=== PATIENT | male | born 1970 | race Caucasian/White ===

== ENCOUNTER 2018-02-14 18:55 | Emergency (ER) | payer BC ==
[2018-02-14 19:06] VITALS: BP 125/85
--- NOTE | 2018-02-14 19:26 | EDM.PDOC ---
ED HPI GENERAL MEDICAL PROBLEM - General Chief Complaint: Lower Extremity Injury/Pain Stated Complaint: RIGHT THIGH PAINFUL Time Seen by Provider: 02/14/18 19:19 Source of Information: Reports: Patient, Family (spouse) History Limitations: Reports: No Limitations - History of Present Illness INITIAL COMMENTS - FREE TEXT/NARRATIVE: 47-year-old male presents the ED referred from [facility]. Patient is complaining of diffuse pain right medial thigh that started early this morning and progressively worsened as the day gone on to the point that he can barely walk. He has no known injuries to this area. He did travel quite a bit over the weekend 6 or 7 hours down to [place] and 6-7 hours back 2 days later. No history of DVT. Patient is able to localize the pain very well to the medial aspect of his quadriceps. He complains of no other problems particularly no shortness of breath cough or hemoptysis. No swelling of his lower extremity. Onset: Today Onset Date: 02/14/18 (Very mild discomfort medial right quadriceps musculature) Duration: Hour(s): Location: Reports: Lower Extremity, Right (Right medial mid ) Quality: Reports: Ache, Other Severity: Moderate (There is very tender to touch. Current pain as 7 or 8 out of 10) Improves with: Reports: Rest Worsens with: Reports: Movement Context: Denies: Activity, Exercise, Lifting, Sick Contact, Trauma, Other Associated Symptoms: Denies: No Other Symptoms, Confusion, Chest Pain, Cough, cough w sputum, Diaphoresis, Fever/Chills, Headaches, Loss of Appetite, Malaise , Rash, Seizure, Shortness of Breath, Syncope Treatments FLOOR CARE TECHNICIAN: Reports: Acetaminophen Right Leg Pain Score (Numeric/FACES): 4 - Related Data Allergies Allergy/AdvReac Type Severity Reaction Status Date / Time brompheniramine maleate Allergy Rash Verified 02/14/18 19:01 [From Dimetapp Cold-Allergy (PE)] Iodinated Contrast- Oral and Allergy Hives Verified 02/14/18 19:01 IV Dye [Iodinated Contrast Media - IV Dye] Penicillins Allergy Chest Verified 02/14/18 19:01 Tightness phenylephrine HCl Allergy Rash Verified 02/14/18 19:01 [From Dimetapp Cold-Allergy (PE)] Home Meds: Home Meds Levothyroxine 225 mcg PO ACBREAKFAST 02/14/18 [History] Past Medical History - Past Surgical History HEENT Surgical History: Reports: Other (See Below) Other HEENT Surgeries/Procedures: 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 Other GI Surgeries/Procedures: GASTRIC BYPASS Social & Family History - Tobacco Use Smoking Status *Q: Never Smoker Second Hand Smoke Exposure: No - Recreational Drug Use Recreational Drug Use: No - Living Situation & Occupation Living situation: Reports: Occupation: Employed Review of Systems - Review of Systems Review Of Systems: See Below Constitutional: Reports: No Symptoms Eyes: Reports: No Symptoms Ears: Reports: No Symptoms Nose: Reports: No Symptoms Mouth/Throat: Reports: No Symptoms Respiratory: Reports: No Symptoms Cardiovascular: Reports: No Symptoms GI/Abdominal: Reports: No Symptoms Genitourinary: Reports: No Symptoms Musculoskeletal: Reports: Leg Pain (Medial right thigh pain that has progressively) Skin: Reports: No Symptoms ( worsened as the day has gone on.) Neurological: Reports: No Symptoms Psychiatric: Reports: No Symptoms ED EXAM, GENERAL - Physical Exam Exam: See Below Exam Limited By: Uncooperative General Appearance: Alert, WD/WN, No Apparent Distress Peripheral Pulses: 3+: Posterior Tibial (L), Posterior Tibial (R), Dorsalis Pedis (L), Dorsalis Pedis (R) Extremities: Other (Examination was limited to the right lower extremity. He has good dorsalis pedis and posterior tibial pulses to the right foot. There is no discoloration. There is no swelling or edema of the lower extremity. There is no pain on palpation throughout the entire calf musculature or midline catheter. The knee itself shows no effusion. Pain is well localized to the medial quadriceps muscle I believe about 3 cm anterior to the greater saphenous vein. He has point tenderness in this area however. It is worse with the knee in flexed position. Suggest that these got a partial tear of quadriceps tendon) Neurological: Alert, Oriented, CN II-XII Intact, Normal Cognition, Abnormal Gait Psychiatric: Normal Affect (Limping gait.), Normal Mood Course - Vital Signs Last Recorded V/S: Last Vital Signs Temp 37.7 C 02/14/18 19:02 Pulse 72 02/14/18 19:02 Resp 17 02/14/18 19:02 BP 125/85 02/14/18 19:02 Pulse Ox 98 02/14/18 19:02 - Orders/Labs/Meds Orders: Active Orders 24 hr Category Date Time Status Femur Min 2V Rt [CR] Stat Exams 02/14/18 19:20 Taken VL Duplex Lwr Ext Veins Ltd Rt [US] Stat Exams 02/14/18 19:19 Taken - Radiology Interpretation Free Text/Narrative:: 47-year-old male presents to the ED with acute onset of pain medial aspect of his right thigh that is progressed as the day has gone on. He states was very mildly tender this morning when he got up but as the days gone on to work he is limping badly by the end of the day. He can localize the pain very well to the mid medial quadriceps musculature. It doesn't take much to make it hurt suggesting that it is quite superficial in origin. I believe that is about 3 cm anterior to the greater saphenous veins unlikely to work represent a phlebitis. However I will have a Doppler ultrasound of the area carried out and a x-ray of the femur to make sure not missing anything in the underlying bone. - Re-Assessments/Exams Free Text/Narrative Re-Assessment/Exam: 02/14/18 20:43 x-ray of the right femur is completely normal. An ultrasound of the veins within the leg have been completed and I do not see any evidence of deep venous thrombosis. The biomedical instrument technician as localized his area of tenderness and it measures approximately 2 cm x 1 cm. I will await the radiologist's report in regards to possible etiology. However it appears that this may well be an underlying hematoma within the quadriceps musculature. Departure - Departure Time of Disposition: 20:49 Disposition: Home, Self-Care 01 Condition: Fair Clinical Impression: Strain of right quadriceps muscle Qualifiers: Encounter type: initial encounter Qualified Code(s): S76.111A - Strain of right quadriceps muscle, fascia and tendon, initial encounter - Discharge Information Instructions: Quadriceps Strain Referrals: Celine Arellano, EPIDEMIOLOGY INTERN [Primary Care Provider] - Forms: ED Department Discharge Additional Instructions: Evaluation in the emergency him today in regards to development of increasing pain over the day in the right medial thigh in the distribution of the medial quadriceps muscle. There is exquisitely tender to touch and well localized. An x -ray of the underlying femur bone shows no bony abnormalities. An ultrasound of the leg veins shows no evidence of a blood clot within the deep venous system. The area of pain was localized by the tech and it appears to be a hematoma or collection of blood within the muscle likely due to spontaneous rupture of a vein within the muscle belly. This is causing stretching of the area which is causing pain. Treatment is therefore heat pack to the area one half hour out of every 4 hours when available. Motrin 600 mg every 6 hours needed for pain relief. This is likely to take 7-10 days to completely resolve. However does not represent anything serious. - My Orders Last 24 Hours: My Active Orders 02/14/18 19:19 VL Duplex Lwr Ext Veins Ltd Rt [US] Stat 02/14/18 19:20 Femur Min 2V Rt [CR] Stat - Assessment/Plan Last 24 Hours: My Active Orders 02/14/18 19:19 VL Duplex Lwr Ext Veins Ltd Rt [US] Stat 02/14/18 19:20 Femur Min 2V Rt [CR] Stat
--- NOTE | 2018-02-15 08:30 | CR ---
Right femur: AP and lateral views of the right femur were obtained. Comparison: No prior femur study. Mild joint space narrowing is seen superiorly within the right hip. No fracture or other bony abnormality is seen. Impression: 1. Mild joint space narrowing within the right hip. 2. Right femur exam is otherwise unremarkable. Diagnostic code #2
--- NOTE | 2018-02-15 08:30 | US ---
Right lower extremity deep venous ultrasound: Duplex and color flow imaging was obtained of the right common femoral, proximal greater saphenous, superficial femoral, popliteal, posterior tibial and peroneal veins. Left common femoral vein was also evaluated. Comparison: No prior venous ultrasound. Findings: Normal phasic flow, augmentation and compression are seen. Small hyperechoic area seen within the inner thigh described as area of tenderness either due to small lipoma or lymph node measuring 9 mm. Impression: 1. No evidence of deep venous thrombosis within the right lower extremity or left common femoral vein. 2. 9 mm small lipoma or lymph node within the inner right thigh. Diagnostic code #2 I agree with preliminary report issued by [facility] ([facility] preliminary report dictated on 02/14/18, 9:43 PM Central Time)
== END 2018-02-14 21:03 | disposition home or self-care (01) ==
LOC: JD.ED 18:55
DX: S76.111A Strain of right quadriceps muscle, fascia and tendon, initial encounter (principal); Z88.0 Allergy status to penicillin; Z88.8 Allergy status to other drugs, medicaments and biological substances; Z91.041 Radiographic dye allergy status; X58.XXXA Exposure to other specified factors, initial encounter
CPT/HCPCS: 73552-26-RT; 73552-RT; 93971-26-RT; 93971-RT; 99283; 99284-25

== ENCOUNTER 2023-04-18 19:19 | Emergency (ER) | payer BC, OTHER ==
[2023-04-18 21:25] LABS: BASOPHILS ABSOLUTE AUTO 0.03 K/mm3 (0.01-0.08); BASOPHILS PERCENT AUTO 0.3 % (0.1-1.2); EOSINOPHILS ABSOLUTE AUTO 0.07 K/mm3 (0.04-0.54); EOSINOPHILS PERCENT AUTO 0.8 (0.8-7.0); HEMATOCRIT 39.4 % (40.1-51.0); HEMOGLOBIN 13.8 gm/dl (13.7-17.5); IMMATURE GRAN ABSOLUTE AUTO 0.18 K/mm3 (0.00-0.10); IMMATURE GRAN PERCENT AUTO 1.9 % (<=1.0); LYMPHOCYTES ABSOLUTE AUTO 0.44 K/mm3 (1.32-3.57); LYMPHOCYTES PERCENT AUTO 4.7 % (21.8-53.1); MEAN CORPUSCULAR HEMOGLOBIN 30.2 pg (25.7-32.2); MEAN CORPUSCULAR VOLUME 86.2 fl (79.0-92.2); MEAN PLATELET VOLUME 10.6 fl (9.4-12.3); MONOCYTES ABSOLUTE AUTO 0.69 K/mm3 (0.30-0.82); MONOCYTES PERCENT AUTO 7.4 % (5.3-12.2); NEUTROPHILS ABSOLUTE AUTO 7.86 K/mm3 (1.78-5.38); NEUTROPHILS PERCENT AUTO 84.9 % (34.0-67.9); PLATELET COUNT,PLT 348 K/mm3 (163-337); RED BLOOD CELL COUNT 4.57 M/mm3 (4.63-6.08); WHITE BLOOD CELL COUNT,WBC 9.27 K/mm3 (4.23-9.07)
[2023-04-18] MEDS ORDERED: Sodium Chloride 0.9% 1,000 ML IV ONE (21:28)
[2023-04-18 21:43] LABS: LACTIC ACID 1.2 mmol/L (0.4-2.0)
[2023-04-18] MEDS ORDERED: diphenhydrAMINE 50 MG/ML SDV IVPUSH ONE (21:46)
[2023-04-18 21:49] LABS: A/G RATIO 1.1 (1-2); ALBUMIN 3.7 g/dl (3.4-5.0); ANION GAP 11.9 (5-15); BILIRUBIN TOTAL 1.2 mg/dL (0.2-1.0); CALCIUM 8.8 mg/dL (8.5-10.1); CREATININE 1.1 mg/dL (0.7-1.3); EST CRCL DRUG DOSING (CG) 88.18 mL/min; POTASSIUM,K 3.9 mEq/L (3.5-5.1); PROTEIN TOTAL,TP 7.2 g/dl (6.4-8.2)
[2023-04-18] MEDS ORDERED: Iopamidol 612 MG/ML 100 ML Bottle IVPUSH ONE (22:02)
[2023-04-18 22:04] LABS: SLIDE REVIEW ABNORMAL SMEAR
[2023-04-19] MEDS ORDERED: Polyethylene Glycol 3350 Powder 17 GM Packet PO ONE (00:09)
[2023-04-19 00:12] LABS: APPEARANCE,URINE CLEAR (Clear); BILIRUBIN,URINE NEGATIVE (Negative); COLOR,URINE YELLOW (Yellow); GLUCOSE,URINE NEGATIVE (Negative); KETONES,URINE NEGATIVE (Negative); LEUKOCYTE ESTERASE,URINE NEGATIVE (Negative); NITRITE,URINE NEGATIVE (Negative); OCCULT BLOOD,URINE NEGATIVE (Negative); PROTEIN,URINE NEGATIVE (Negative); UROBILINOGEN,URINE 0.2 (0.2-1.0)
[2023-04-19 02:25] VITALS: BP 142/85; PULSE 89
== END 2023-04-19 00:45 | disposition home or self-care (01) ==
LOC: JD.ED 19:19
DX: K59.00 Constipation, unspecified (principal)
CPT/HCPCS: 36415; 74177; 80053; 81003; 83605; 85025; 87040; 96361; 96374; 99284; A9270; J1200; J7030; Q9967